=== PATIENT | female | born 1965 | race Caucasian/White ===

== ENCOUNTER → 2016-09-29 | Outpatient (CLI) | payer OTHER ==
[~2016-09-29] MED LIST: ACETAMINOPHEN325 MG PO; ADVIL200 MG PO; BACITRACIN OINT30 GM TOP; BUTRANS1 EAC1 TRANS; MILK OF MA400 MG/5 M PO; MULTI VITAMIN1 EACH PO; NORCO 7.5-3251 EACH PO; TIROSINT88 MCG PO
== END | disposition disaster alternative care site (69) ==
LOC: GLAB 16:30
DX: E04.2 Nontoxic multinodular goiter (principal)

== ENCOUNTER → 2016-11-11 | Outpatient (CLI) | payer OTHER | END | disposition disaster alternative care site (69) | LOC: GLAB 13:00 | DX: E04.2 Nontoxic multinodular goiter (principal) ==

== ENCOUNTER → 2016-12-27 | Outpatient (CLI) | payer OTHER | END | disposition disaster alternative care site (69) | LOC: GLAB 15:55 | DX: E04.1 Nontoxic single thyroid nodule (principal) ==

== ENCOUNTER → 2017-02-21 | Outpatient (CLI) | payer OTHER | END | disposition disaster alternative care site (69) | LOC: GLAB 16:03 | DX: E04.1 Nontoxic single thyroid nodule (principal) ==